=== PATIENT | male | born 1955 ===

== ENCOUNTER 2016-11-13 19:12 | Emergency (ER) | payer SELFPAY ==
[2016-11-13] MEDS ORDERED: methylPREDNISolone 125 MG* 2 ML VIAL IV ONE (19:46)
[2016-11-13] MEDS ORDERED: NS 0.9% 1000 ML* 1,000 ML IV ONE (19:46)
[2016-11-13] MEDS ORDERED: Albuterol/Ipratropium NEB.SOL* Albuterol 2.5 MG/Ipratropium 0.5 MG 3 ML ONE (19:56)
[2016-11-13] MEDS: Albuterol/Ipratropium NEB.SOL* Albuterol 2.5 MG/Ipratropium 0.5 MG 3 ML INH SCH ×3 (19:59→20:13)
--- NOTE | 2016-11-13 21:47 | ED ---
I, Oh,Danny, scribed for Dell Schmitz MD on 11/13/16 at 1953 . Respiratory - HPI Summary HPI Summary: Somewhat limited HPI due to language barrier. This 61 y/o male presents to ED for persistent productive cough and dyspnea since 7-10 days ago. Pt reports white/green sputum production. PMHx includes right inguinal hernia and asthma that is controlled with nebulizer at home. He states that he is nonsmoker. - History of Current Complaint Chief Complaint: EDAbdPain Stated Complaint: ASTHMA COMPLAINT Time Seen by Provider: 11/13/16 19:43 Hx Obtained From: Patient Pain Intensity: 5 Character: Cough (Productive) - white/green sputum Sputum Amount: Scant Sputum Color: White, Green Aggravating Factor(s): Nothing Alleviating Factor(s): Nothing Associated Signs and Symptoms: Dyspnea - Allergy/Home Medications Allergies/Adverse Reactions: Allergies Allergy/AdvReac Type Severity Reaction Status Date / Time No Known Allergies Allergy Verified 11/13/16 20:57 PMH/Surg Hx/FS Hx/Imm Hx Respiratory History: Reports: Hx Asthma GI History: Reports: Other GI Disorders - Right inguinal hernia Infectious Disease History: No Infectious Disease History: Denies: Traveled Outside the [place] in Last 30 Days - Family History Known Family History: Positive: Unknown Family History: Both father and mother for unspecified reason. Pt is unable to elaborate FHx due to language barrier. - Social History Alcohol Use: None Hx Substance Use: No Substance Use Type: Reports: None Hx Tobacco Use: No Smoking Status (MU): Never Smoked Tobacco Review of Systems Negative: Fever Positive: Shortness Of Breath, Cough - productive with white/green sputum Negative: Anxious, Depressed All Other Systems Reviewed And Are Negative: Yes Physical Exam Triage Information Reviewed: Yes Vital Signs On Initial Exam: Initial Vitals Temp Pulse Resp BP Pulse Ox 97.8 F 97 18 140/75 96 11/13/16 19:29 11/13/16 19:29 11/13/16 19:29 11/13/16 19:29 11/13/16 19:29 Vital Signs Reviewed: Yes Appearance: Positive: Well-Appearing, No Pain Distress Skin: Positive: Warm Head/Face: Positive: Normal Head/Face Inspection Eyes: Positive: MELISSA ENT: Positive: Hearing grossly normal Neck: Positive: Supple Respiratory/Lung Sounds: Positive: Breath Sounds Present, Wheezes - DIFFUSE BILAT EXP Cardiovascular: Positive: RRR Abdomen Description: Positive: Nontender, Soft Bowel Sounds: Positive: Present Musculoskeletal: Positive: Strength/ROM Intact Neurological: Positive: Alert, Oriented to Person Place, Time Psychiatric: Positive: Affect/Mood Appropriate Diagnostics - Vital Signs Vital Signs Temp Pulse Resp BP Pulse Ox 11/13/16 19:29 97.8 F 97 18 140/75 96 - Laboratory Lab Statement: Any lab studies that have been ordered have been reviewed, and results considered in the medical decision making process. - Radiology CXR Radiology Interpretation Completed By: Radiologist Re-Evaluation - Re-Evaluation First Eval Re-Evaluation Time: 21:46 Change: Improved Disposition - Diagnoses Provider Diagnoses: Asthma Discharge - Discharge Plan Condition: Improved Disposition: HOME Prescriptions: predniSONE TAB* [Deltasone TAB*] 40 mg PO DAILY #8 tab The documentation as recorded by the Lalit giang Soohyun accurately reflects the service I personally performed and the decisions made by , Dell Schmitz MD.
[2016-11-13] MEDS ORDERED: Albuterol/Ipratropium NEB.SOL* Albuterol 2.5 MG/Ipratropium 0.5 MG 3 ML INH ONE (22:38)
[2016-11-13 22:47] VITALS: BP 144/79
--- NOTE | 2016-11-13 23:07 | RAD ---
Indication: Cough, shortness of breath. 2 views of the chest demonstrate no mediastinal shift. Heart is of normal size and configuration. Lung montes are clear. IMPRESSION: No active cardiopulmonary disease is noted.
== END 2016-11-13 22:44 | disposition home or self-care (01) ==
LOC: ED 19:12
DX: J45.909 Unspecified asthma, uncomplicated (principal); R06.02 Shortness of breath; R05 Cough
CPT/HCPCS: 71020; 94640; 96374; 99283; A9270-GY; J2930